=== PATIENT | female | born 1935 ===

== ENCOUNTER 2018-09-20 14:02 | Emergency (ER) | payer OTHER ==
[~2018-09-20] VITALS: Ht 157.5 cm; Wt 75.7 kg
[~2018-09-20 14:02] MED LIST: AROMASIN25 MG PO; CATAFLAM50 MG PO; CIPRO500 MG PO; IBERSARTAN PO; INTESTINEX1 CAP PO; OXYC1TAB9 PO; TOPROL XL25 M1 PO
[2018-09-20] MEDS ORDERED: AVAPRO75 MG (14:50)
== END 2018-09-20 21:24 | disposition home or self-care (01) ==
LOC: ER 14:02 → CPU-OBS 14:12 → ER 21:24
DX: R07.89 Other chest pain (principal); R42 Dizziness and giddiness; J01.80 Other acute sinusitis

== ENCOUNTER 2019-07-12 13:18 | Inpatient (IN) | payer OTHER ==
[~2019-07-12] VITALS: Ht 157.5 cm; Wt 79.8 kg
[~2019-07-12 13:18] MED LIST changes: +AVAPRO75 MG
--- NOTE | 2019-07-12 13:31 | NUR ---
PACIENTE ALERTA, ORIENTADA X 3 ESFERAS REFIERE TENER HEMOGLOBINA BAJA Y LLAMO A KILO. DANIAL MCCORMACK LA CUAL LE INDICO QUE VINIERA PARA EVALUACION Y TRANSFUNDIR.
--- NOTE | 2019-07-12 14:48 | NUR ---
EVALUADA POR EN TURNO QUIEN ORIENTA PACIENTE SOBRE TRATAMEINTO ORDENADO.REFIERE COMPRENDER. SE COLECTA MUESTRA DE LABORATORIOS,ROTULA Y ENVIA PARA ANALISIS. PACIENTE CONSULTADA CON .MCCORMACK POR PLAQUETAS BAJAS.
--- NOTE | 2019-07-12 16:33 | NUR ---
SE RECIBE PTE ALERTA Y ORIENTADA X 3 ESFERAS EN CAMA CON BARANDAS ELEVADAS POR SEGURIDAD. BUEN PATRON RESPIRATORIO. H/L EN ANTEBRAZO IZQUIERDA AREA [facility] DE EDEMA Y ERITEMA. PTE EVALUADA POR .DANIAL MCCORMACK PARA ADMISION A HOSPITAL. SE MANTIENE EN OBSERVACION POR CAMBIOS.
[2019-07-14] MEDS ORDERED: IRBESARTAN150 MG PO (07:57)
[2019-07-17] MEDS ORDERED: TOPROL XL25 M1 PO (11:26)
[2019-07-17] MEDS ORDERED: IRBESARTAN150 MG PO (11:26)
[2019-07-17] MEDS ORDERED: ORAPRED ODT10 MG PO (11:29)
== END 2019-07-17 18:20 | disposition home or self-care (01) | DRG 835 ==
LOC: ER 13:18 → SURH 16:17
PROVIDERS: ADMIT Internal Medicine Cardiovascular Disease
PROC: 8E0ZXY6 Isolation (ICD-10-PCS; 2019-07-12)
PROC: 30233R1 Transfusion of Nonautologous Platelets into Peripheral Vein, Percutaneous Approach (ICD-10-PCS; principal; 2019-07-13)
PROC: 07DR3ZX Extraction of Iliac Bone Marrow, Percutaneous Approach, Diagnostic (ICD-10-PCS; 2019-07-14)
DX: C92.00 Acute myeloblastic leukemia, not having achieved remission (principal); D61.818 Other pancytopenia; D69.49 Other primary thrombocytopenia; D50.9 Iron deficiency anemia, unspecified; I10 Essential (primary) hypertension; E11.9 Type 2 diabetes mellitus without complications; Z79.4 Long term (current) use of insulin